=== PATIENT | male | born 1970 | race Caucasian/White ===

== ENCOUNTER 2021-03-15 12:10 | Emergency (ER) | payer OTHER ==
[~2021-03-15] VITALS: Ht 172.7 cm; Wt 74.8 kg
[2021-03-15] MEDS ORDERED: LIPITOR10 MG PO (12:17)
[2021-03-15 12:31] LABS: URINE BILIRUBIN NEGATIVE (Negative); URINE BLOOD TRACE (Negative); URINE CLARITY CLEAR; URINE COLOR YELLOW; URINE GLUCOSE-RANDOM NEGATIVE (Negative); URINE KETONES NEGATIVE (Negative); URINE LEUKOCYTES NEGATIVE (Negative); URINE NITRITE NEGATIVE (Negative); URINE PROTEIN 1+ (Negative); URINE UROBILINOGEN 0.2 E.U./dl (0.2-1.0)
[2021-03-15 12:32] LABS: ABSOLUTE BASOPHILS 0.1 thou/uL (0.0-0.2); ABSOLUTE EOSINOPHILS 0.3 thou/uL (0.0-0.7); ABSOLUTE LYMPHOCYTES 2.8 thou/uL (0.8-5.3); ABSOLUTE MONOCYTES 0.8 thou/uL (0.0-1.2); ABSOLUTE NEUTROPHILS 4.2 thou/uL (1.6-8.1); BASOPHILS 1.6 %; EOSINOPHILS 3.1 %; HEMATOCRIT 44.5 % (42.0-52.0); HEMOGLOBIN 15.3 gm/dL (14.0-18.0); LYMPHOCYTES 34.1 %; MCH 32.6 pg (26.0-34.0); MCHC 34.4 g/dL (28.0-37.0); MCV 94.8 fL (80.0-100.0); MONOCYTES 10.2 %; NUCLEATED RBCS 0 /100WBC; PLATELET COUNT* 364 thou/uL (150-400); RBC 4.69 mil/uL (4.50-6.00); RDW-CV 12.9 % (10.5-14.5); WBC 8.1 thou/uL (4.0-11.0)
[2021-03-15 12:41] LABS: BACTERIA 1-9 Few /HPF (None Seen); CASTS None Seen /LPF (None Seen); CRYSTALS None Seen /LPF (None Seen); SQUAMOUS 0-3 Few /LPF (0-3); URINE RBC 0-2 Rare /HPF (0-2); URINE WBC 0-5 Rare /HPF (0-5)
[2021-03-15 12:48] LABS: CALCIUM 9.3 mg/dL (8.5-10.1); POTASSIUM 3.9 mmol/L (3.5-5.1)
[2021-03-15 12:53] LABS: ALBUMIN 4.3 g/dL (3.4-5.0); DIRECT BILIRUBIN 0.1 mg/dL (<0.1-0.3); TOTAL BILIRUBIN 0.6 mg/dL (<0.1-1.0); TOTAL PROTEIN 8.3 g/dL (6.4-8.2)
[2021-03-15] MEDS ORDERED: CIPRO500 M1 PO (13:49)
[2021-03-15] MEDS ORDERED: ZOFRAN ODT4 MG PO (13:49)
[2021-03-15] MEDS ORDERED: TYLENOL325 M1 PO (13:49)
[2021-03-15] MEDS ORDERED: NAPROSYN500 MG PO (13:49)
[2021-03-15 14:07] VITALS: BP 163/98
== END 2021-03-15 14:08 | disposition home or self-care (01) ==
LOC: M.ERS 12:10
PROVIDERS: Emergency Medicine
DX: N30.90 Cystitis, unspecified without hematuria (principal); Z88.0 Allergy status to penicillin

== ENCOUNTER 2021-03-21 12:55 | Emergency (ER) | payer OTHER ==
[~2021-03-21] VITALS: Ht 170.2 cm; Wt 74.8 kg
[~2021-03-21 12:55] MED LIST: CIPRO500 M1 PO; LIPITOR10 MG PO; NAPROSYN500 MG PO; TYLENOL325 M1 PO; ZOFRAN ODT4 MG PO
[2021-03-21] MEDS ORDERED: COZAAR 50 MG TA50 MG PO (13:10)
[2021-03-21 13:13] LABS: URINE BILIRUBIN NEGATIVE (Negative); URINE BLOOD TRACE (Negative); URINE CLARITY CLEAR; URINE COLOR YELLOW; URINE GLUCOSE-RANDOM NEGATIVE (Negative); URINE KETONES NEGATIVE (Negative); URINE LEUKOCYTES-REFLEX NEGATIVE (Negative); URINE NITRITE-REFLEX NEGATIVE (Negative); URINE PROTEIN NEGATIVE (Negative); URINE SPECIFIC GRAVITY 1.015 (1.005-1.030); URINE UROBILINOGEN 0.2 E.U./dl (0.2-1.0)
[2021-03-21 13:53] LABS: ABSOLUTE BASOPHILS 0.1 thou/uL (0.0-0.2); ABSOLUTE EOSINOPHILS 0.3 thou/uL (0.0-0.7); ABSOLUTE LYMPHOCYTES 1.8 thou/uL (0.8-5.3); ABSOLUTE MONOCYTES 0.9 thou/uL (0.0-1.2); ABSOLUTE NEUTROPHILS 7.7 thou/uL (1.6-8.1); EOSINOPHILS 2.5 %; HEMATOCRIT 43.5 % (42.0-52.0); HEMOGLOBIN 14.8 gm/dL (14.0-18.0); LYMPHOCYTES 16.8 %; MCH 32.4 pg (26.0-34.0); MCV 95.5 fL (80.0-100.0); MONOCYTES 8.2 %; MPV 8.1 fl. (7.2-11.1); NUCLEATED RBCS 0 /100WBC; PLATELET COUNT* 320 thou/uL (150-400); POLYS 71.5 %; RBC 4.56 mil/uL (4.50-6.00); RDW-CV 12.7 % (10.5-14.5); WBC 10.7 thou/uL (4.0-11.0)
[2021-03-21 14:02] LABS: CALCIUM 9.6 mg/dL (8.5-10.1); POTASSIUM 4.1 mmol/L (3.5-5.1)
[2021-03-21 14:07] LABS: ALBUMIN 4.3 g/dL (3.4-5.0); TOTAL BILIRUBIN 0.7 mg/dL (<0.1-1.0); TOTAL PROTEIN 8.4 g/dL (6.4-8.2)
[2021-03-21] MEDS ORDERED: HYDROCODON-ACE1 EAC7 PO ×2 (14:10→14:11)
[2021-03-21] MEDS ORDERED: PREDNISONE 20 M20 M1 PO (14:11)
[2021-03-21 14:33] VITALS: BP 164/99
== END 2021-03-21 14:34 | disposition home or self-care (01) ==
LOC: M.ERS 12:55
PROVIDERS: Family Medicine; Nurse Practitioner Family
DX: M54.5 Low back pain (principal); I10 Essential (primary) hypertension; Z88.0 Allergy status to penicillin; Z79.899 Other long term (current) drug therapy